=== PATIENT | female | born 1975 | race Caucasian/White ===

== ENCOUNTER 2017-11-18 10:04 | Outpatient (CLI) | payer OTHER ==
[~2017-11-18] VITALS: Ht 170.2 cm; Wt 75.0 kg
[~2017-11-18 10:04] MED LIST: FISH OIL 1000MG1 CAP PO
[2017-11-18 10:33] VITALS: BP 128/67; PULSE 68
[2017-11-18 11:30] VITALS: BP 108/69; PULSE 54; PULSE 55
[2017-11-18 11:49] LABS: CSF APPEARANCE CLEAR; CSF COLOR COLORLESS; CSF RBC 1 /mm3 (0-0)
[2017-11-18 11:51] LABS: GLUCOSE,CSF 50 mg/dL (40-70); TOTAL PROTEIN,CSF 41 mg/dL (15-45)
[2017-11-18 13:05] LABS: CSF MONONUCLEAR 100 % (70-100); CSF POLYMORPHONUCLEAR 0 % (0-6)
[2017-11-22 11:23] LABS: ALBUMIN CSF 13.3 mg/dL (<=27.0); CSF IGG/ALBUMIN 0.16 (<=0.21); CSF,IGG 2.1 mg/dL (<=8.1)
[2017-11-22 11:49] LABS: CSF-IGG INDEX 0.5 (<=0.85); IGG/ALBUMIN SERUM 0.32 (<=0.40)
== END 2017-11-18 13:16 | disposition home or self-care (01) ==
LOC: COL.RAD 10:04
PROVIDERS: Psychiatry & Neurology Neurology
DX: G37.9 Demyelinating disease of central nervous system, unspecified (principal)

== ENCOUNTER 2017-11-21 13:54 | Emergency (ER) | payer OTHER ==
[~2017-11-21] VITALS: Ht 170.2 cm; Wt 75.0 kg
[2017-11-21 13:57] VITALS: TEMP 97.9
[2017-11-21] MEDS ORDERED: NORCO 325 MG-51 TAB PO (15:53)
[2017-11-21] MEDS ORDERED: ZOFRAN 4MG T4 MG/TAB PO (15:53)
[2017-11-21 16:19] VITALS: BP 117/67; PULSE 67
== END 2017-11-21 16:28 | disposition home or self-care (01) ==
LOC: COL.ER 13:54
DX: G97.1 Other reaction to spinal and lumbar puncture (principal); Z90.89 Acquired absence of other organs; Z90.710 Acquired absence of both cervix and uterus; Z98.890 Other specified postprocedural states
CPT/HCPCS: J1885; J7030